=== PATIENT | female | born 1965 | race Caucasian/White ===

== ENCOUNTER 2022-03-05 19:56 | Emergency (ER) | payer OTHER ==
[2022-03-05] MEDS ORDERED: NORCO 5-325 TA1 EACH PO (22:43)
== END 2022-03-05 23:11 | disposition home or self-care (01) ==
LOC: FER 19:56
DX: M25.422 Effusion, left elbow (principal); M25.532 Pain in left wrist; I10 Essential (primary) hypertension; Z79.899 Other long term (current) drug therapy; Z88.0 Allergy status to penicillin; W01.0XXA Fall on same level from slipping, tripping and stumbling without subsequent striking against object, initial encounter; Y92.009 Unspecified place in unspecified non-institutional (private) residence as the place of occurrence of the external cause
CPT/HCPCS: 73080; 73110